=== PATIENT | female | born 1965 | race Caucasian/White ===

== ENCOUNTER 2019-05-24 08:15 | Day surgery (SDC) | payer BC ==
[2019-05-22 12:15] VITALS: BMI 39.4
[~2019-05-24 08:15] MED LIST: LACTATED RINGERS 1,000 ML IV SCH
--- NOTE | 2019-05-24 08:15 | P.GSCN ---
History of Present Illness Consult date: 05/24/19 History of present illness: CHIEF COMPLAINT: Colon screen HISTORY OF PRESENT ILLNESS: The patient is a 53-year-old female who presents for colon screen. Lower endoscopy was offered for further evaluation and management. PAST MEDICAL HISTORY: Please see list. PAST SURGICAL HISTORY: Please see list. MEDICATIONS: Please see list. ALLERGIES: Please see list. SOCIAL HISTORY: No illicit drug use FAMILY HISTORY: No reports of Crohn disease or ulcerative colitis. REVIEW OF ORGAN SYSTEMS: CONSTITUTIONAL: No reports of fevers or chills. PHYSICAL EXAM: VITAL SIGNS: Stable GENERAL: Well-developed pleasant in no acute distress. HEENT: No scleral icterus. Extraocular movements grossly intact. Moist buccal mucosa. NECK: Supple without lymphadenopathy. CHEST: Unlabored respirations. Equal bilateral excursions. CARDIOVASCULAR: Regular rate and rhythm. Distal 2+ pulses. ABDOMEN: Soft, nontender, nondistended. MUSCULOSKELETAL: No clubbing, cyanosis, or edema. ASSESSMENT: 1. Colon screen. PLAN: 1. Recommend proceeding with a lower endoscopy Past Medical History Past Medical History: Hypertension, Osteoarthritis (OA) Additional Past Medical History / Comment(s): HEART MURMUR, BACK PAIN, STATES LOW TOLERANCE TO MEDICATIONS, CURRENTLY ON WEIGHT WATCHERS., OCCASIONAL VERTIGO. History of Any Multi-Drug Resistant Organisms: None Reported Past Surgical History: Section, Cholecystectomy, Tonsillectomy Additional Past Surgical History / Comment(s): BREAST BX. Past Anesthesia/Blood Transfusion Reactions: No Reported Reaction, Motion Sickness Additional Past Anesthesia/Blood Transfusion Reaction / Comm: STATES LOW TOLERANCE TO MEDS- SENSITIVE., OCCASIONAL VERTIGO, ANXIETY DUE TO ANESTHESIA. Past Psychological History: Anxiety Smoking Status: Never smoker Past Alcohol Use History: None Reported Past Drug Use History: None Reported - Past Family History Mother Family Medical History: Cancer Additional Family Medical History / Comment(s): BREAST AND ORAL CANCER Medications and Allergies Home Medications Medication Instructions Recorded Confirmed Type Calcium Carbonate [Calcium] 500 mg PO DAILY 05/22/19 05/22/19 History Lisinopril [Zestril] 10 mg PO DAILY 05/22/19 05/22/19 History Magnesium (Unknown Dose) 1 tab PO DAILY 05/22/19 05/22/19 History Multivitamin Powder Drink 1 dose PO DAILY 05/22/19 05/22/19 History [place]-3 Fatty Acids/Fish Oil [Fish 1 each PO DAILY 05/22/19 05/22/19 History Oil 1,000 mg Softgel] Potassium (Unknown Dose) 1 tab PO DAILY 05/22/19 05/22/19 History Allergies Allergy/AdvReac Type Severity Reaction Status Date / Time codeine Allergy Unknown Unknown Verified 05/22/19 12:02 Penicillins Allergy Unknown Unknown Verified 05/22/19 12:01 tetracycline Allergy Unknown Unknown Verified 05/22/19 12:02 meperidine [From Demerol] AdvReac Severe Nausea & Verified 05/22/19 12:02 Vomiting
[2019-05-24 08:32] VITALS: RESP 17; TEMP 97.2
[2019-05-24] MEDS ORDERED: LIDOCAINE 1% 20 ML VIAL (10MG/ML) FOR IV START INTRADERMA ONE (08:40)
[2019-05-24] MEDS ORDERED: fentaNYL (PF) 50 MCG/ML 2 ML AMP ONE (09:15)
[2019-05-24] MEDS ORDERED: PROPOFOL 10 MG/ML 20 ML VIAL IV ONE (09:15)
[2019-05-24] MEDS ORDERED: LIDOCAINE 1% INJ 10MG/ML (20 ML MDV) ONE (09:15)
[2019-05-24] MEDS ORDERED: MIDAZOLAM 2 MG/2 ML VIAL ONE (09:15)
--- NOTE | 2019-05-24 09:50 | P.PCN ---
Date of Procedure: 05/24/19 Description of Procedure: PREOPERATIVE DIAGNOSIS: Colonoscopy screening, first Family history of colon cancer, father POSTOPERATIVE DIAGNOSIS: Colonoscopy screening, first Family history of colon cancer, father Multiple tubular adenomas throughout the colon. OPERATION: Colonoscopy to the ileocecal valve and appendiceal orifice. Colonoscopy with multiple hot snare polypectomies Colonoscopy with multiple cold forceps biopsies. SURGEON: Kari Alcala MD. ANESTHESIA: MAC. INDICATIONS: The patient is a 53-year-old female who presents for her first colonoscopy screening. She has family history of colon cancer in her father. Benefits and risks were described and informed consent was obtained. DESCRIPTION OF PROCEDURE: The patient had undergone Suprep. She had been brought into the operating room and laid in the left lateral decubitus position. After adequate intravenous sedation, the rectum was examined with 2% lidocaine jelly. External hemorrhoids were encountered. The rectal tone was within normal limits. No lesions were palpated in the rectal vault. An Olympus colonoscope was advanced until the ileocecal valve and appendiceal orifice were clearly viewed. The prep was good with visualization of the mucosal folds. The scope was removed with visualization of each mucosal fold. Few scattered diverticulosis was encountered. Multiple colonic polyps were found snare polypectomy. No evidence of focal colitis was found. Retroflexion of the scope demonstrated grade 1 internal hemorrhoids without active bleeding or inflammation. The colon was desufflated. The patient had tolerated the procedure well. Withdrawal time was over 6 minutes. FINDINGS: Aronchick preparation quality scale 1 (1-5) Internal hemorrhoids, grade 1 External hemorrhoids, grade 2. No arteriovenous malformations. Highly redundant sigmoid colon requiring abdominal wall pressure. Few scattered sigmoid diverticulosis Removal of 3 polyps from the proximal, mid transverse colon and descending colon: - Snare polypectomy 30 cm from the anal verge, 15 mm tubulovillous adenoma polyp. - Snare polypectomy mid transverse colon, 8 mm flat villous adenoma polyp. - Snare polypectomy of distal transverse colon, 6 mm flat villous adenoma polyp. No focal colitis. RECOMMENDATIONS: Given severity of tubular adenomas, recommend repeat colonoscopy 2 years, 2020. Plan - Discharge Summary New Discharge Prescriptions: No Action Lisinopril [Zestril] 10 mg PO DAILY [place]-3 Fatty Acids/Fish Oil [Fish Oil 1,000 mg Softgel] 1 each PO DAILY Magnesium (Unknown Dose) 1 tab PO DAILY Calcium Carbonate [Calcium] 500 mg PO DAILY Potassium (Unknown Dose) 1 tab PO DAILY Multivitamin Powder Drink 1 dose PO DAILY Discharge Medication List Calcium Carbonate [Calcium] 500 mg PO DAILY 05/22/19 [History] Lisinopril [Zestril] 10 mg PO DAILY 05/22/19 [History] Magnesium (Unknown Dose) 1 tab PO DAILY 05/22/19 [History] Multivitamin Powder Drink 1 dose PO DAILY 05/22/19 [History] [place]-3 Fatty Acids/Fish Oil [Fish Oil 1,000 mg Softgel] 1 each PO DAILY 05/22/19 [History] Potassium (Unknown Dose) 1 tab PO DAILY 05/22/19 [History] Follow up Appointment(s)/Referral(s): Kari Alcala MD [STAFF PHYSICIAN] - As Needed Patient Instructions/Handouts: Colorectal Polyps (GEN) Activity/Diet/Wound Care/Special Instructions: Repeat colonoscopy 2 years, 2020 Discharge Disposition: HOME SELF-CARE
[2019-05-24 10:06] VITALS: BP 112/79; PULSE 75
== END 2019-05-24 10:26 | disposition home or self-care (01) ==
LOC: ORWHC2ENDO 08:15
PROVIDERS: ATTEND Surgery Plastic and Reconstructive Surgery
DX: Z12.11 Encounter for screening for malignant neoplasm of colon (principal); D12.3 Benign neoplasm of transverse colon; D12.4 Benign neoplasm of descending colon; K64.0 First degree hemorrhoids; K64.4 Residual hemorrhoidal skin tags; Q43.8 Other specified congenital malformations of intestine; I10 Essential (primary) hypertension; F41.9 Anxiety disorder, unspecified; M19.90 Unspecified osteoarthritis, unspecified site; Z90.49 Acquired absence of other specified parts of digestive tract; Z90.89 Acquired absence of other organs; Z79.899 Other long term (current) drug therapy; Z88.0 Allergy status to penicillin; Z88.1 Allergy status to other antibiotic agents; Z88.5 Allergy status to narcotic agent; Z80.0 Family history of malignant neoplasm of digestive organs; Z80.8 Family history of malignant neoplasm of other organs or systems; Z80.3 Family history of malignant neoplasm of breast
CPT/HCPCS: 88305; 45385; J2250; J2001; J3010; J2704

== ENCOUNTER → 2019-06-29 | Outpatient (CLI) | payer BC ==
--- NOTE | 2019-06-30 09:53 | MM ---
Reason for exam: screening (asymptomatic). Last mammogram was performed 1 year and 10 months ago. History: Family history of breast cancer in mother. Benign right mammotome panel of the right breast, May 15, 2005. Physical Findings: A clinical breast exam by your physician is recommended on an annual basis and results should be correlated with mammographic findings. MG 3D Screening Mammo W/Cad Bilateral CC and MLO view(s) were taken. Prior study comparison: August 16, 2017, bilateral MG 3d screening mammo w/cad. January 25, 2014, bilateral MG screening mammo w CAD. The breast tissue is heterogeneously dense. This may lower the sensitivity of mammography. Stable benign calcifications. There is no discrete abnormality. No significant changes when compared with prior studies. ASSESSMENT: Benign, BI-RAD 2 RECOMMENDATION: Routine screening mammogram of both breasts in 1 year.
== END | disposition home or self-care (01) ==
LOC: RADMAMWWP 07:16
PROVIDERS: ATTEND Family Medicine
DX: Z12.31 Encounter for screening mammogram for malignant neoplasm of breast (principal)
CPT/HCPCS: 77063; 77067

== ENCOUNTER → 2020-06-11 | Outpatient (CLI) | payer BC | END | disposition home or self-care (01) | LOC: LABWHC1 14:35 | PROVIDERS: ATTEND Family Medicine | DX: R05 Cough (principal); R53.83 Other fatigue; R19.7 Diarrhea, unspecified; R52 Pain, unspecified | CPT/HCPCS: U0003; C9803 ==

== ENCOUNTER → 2020-10-11 | Outpatient (CLI) | payer BC ==
--- NOTE | 2020-10-15 10:25 | MM ---
Reason for exam: screening (asymptomatic). Last mammogram was performed 1 year and 3 months ago. History: Patient is postmenopausal. Family history of breast cancer in mother. Benign right mammotome panel of the right breast, May 15, 2005. Physical Findings: A clinical breast exam by your physician is recommended on an annual basis and results should be correlated with mammographic findings. MG 3D Screening Mammo W/Cad Bilateral CC and MLO view(s) were taken. Prior study comparison: June 29, 2019, bilateral MG 3d screening mammo w/cad. August 16, 2017, bilateral MG 3d screening mammo w/cad. There are scattered fibroglandular densities. Previous mammotome biopsy in the right breast. There is chronic nodularity in the left breast. No significant changes when compared with prior studies. ASSESSMENT: Benign, BI-RAD 2 RECOMMENDATION: Routine screening mammogram of both breasts in 1 year.
== END | disposition home or self-care (01) ==
LOC: RADMAMWWP 15:33
PROVIDERS: ATTEND Family Medicine
DX: Z12.31 Encounter for screening mammogram for malignant neoplasm of breast (principal)
CPT/HCPCS: 77063; 77067

== ENCOUNTER 2022-04-01 06:38 | Day surgery (SDC) | payer BC ==
[~2022-04-01 06:38] MED LIST changes: +LIDOCAINE 1% (10MG/ML) FOR IV START INTRADERMA PRN
[2022-04-01 07:00] VITALS: TEMP 97
[2022-04-01] MEDS ORDERED: PROPOFOL 10 MG/ML 20 ML VIAL IV ONE (07:29)
--- NOTE | 2022-04-01 07:34 | P.GSHP ---
History of Present Illness H&P Date: 04/01/22 CHIEF COMPLAINT: Colon screen HISTORY OF PRESENT ILLNESS: The patient is a 56-year-old female who presents for colon screen. Lower endoscopy was offered for further evaluation and management. PAST MEDICAL HISTORY: Please see list. PAST SURGICAL HISTORY: Please see list. MEDICATIONS: Please see list. ALLERGIES: Please see list. SOCIAL HISTORY: No illicit drug use FAMILY HISTORY: No reports of Crohn disease or ulcerative colitis. REVIEW OF ORGAN SYSTEMS: CONSTITUTIONAL: No reports of fevers or chills. PHYSICAL EXAM: VITAL SIGNS: Stable GENERAL: Well-developed pleasant in no acute distress. HEENT: No scleral icterus. Extraocular movements grossly intact. Moist buccal mucosa. NECK: Supple without lymphadenopathy. CHEST: Unlabored respirations. Equal bilateral excursions. CARDIOVASCULAR: Regular rate and rhythm. Distal 2+ pulses. ABDOMEN: Soft, nontender, nondistended. MUSCULOSKELETAL: No clubbing, cyanosis, or edema. ASSESSMENT: 1. Colon screen. PLAN: 1. Recommend proceeding with a lower endoscopy Past Medical History Past Medical History: Hypertension, Osteoarthritis (OA) Additional Past Medical History / Comment(s): HEART MURMUR ( mild ), BACK PAIN, STATES LOW TOLERANCE TO MEDICATIONS, CURRENTLY ON WEIGHT WATCHERS., OCCASIONAL VERTIGO. Covid 08/26 History of Any Multi-Drug Resistant Organisms: None Reported Past Surgical History: Section, Cholecystectomy, Tonsillectomy Additional Past Surgical History / Comment(s): BREAST BX. Past Anesthesia/Blood Transfusion Reactions: No Reported Reaction, Motion Sickness Additional Past Anesthesia/Blood Transfusion Reaction / Comment(s): STATES LOW TOLERANCE TO MEDS- SENSITIVE., OCCASIONAL VERTIGO, ANXIETY DUE TO ANESTHESIA. Smoking Status: Never smoker - Past Family History Mother Family Medical History: Cancer, COPD Additional Family Medical History / Comment(s): BREAST AND ORAL CANCER Father Additional Family Medical History / Comment(s): carinoma of colon and cirrohsis on autopsy Medications and Allergies Home Medications Medication Instructions Recorded Confirmed Type Calcium Carbonate [Calcium] 500 mg PO DAILY 05/22/19 04/01/22 History Magnesium (Unknown Dose) 1 tab PO DAILY 05/22/19 04/01/22 History Multivitamin Powder Drink 1 dose PO DAILY 05/22/19 04/01/22 History [place]-3 Fatty Acids/Fish Oil [Fish 1 each PO DAILY 05/22/19 04/01/22 History Oil 1,000 mg Softgel] Potassium (Unknown Dose) 1 tab PO DAILY 05/22/19 04/01/22 History Lisinopril-Hctz 20-25 mg 1 tab PO DAILY 03/31/22 04/01/22 History [Zestoretic 20-25] Allergies Allergy/AdvReac Type Severity Reaction Status Date / Time codeine Allergy Unknown Unknown Verified 04/01/22 06:57 Penicillins Allergy Unknown Unknown Verified 04/01/22 06:57 tetracycline Allergy Unknown Rash/Hives Verified 04/01/22 06:57 meperidine [From Demerol] AdvReac Severe Nausea & Verified 04/01/22 06:57 Vomiting Surgical - Exam Vital Signs Temp Resp BP 97 F L 18 155/92 04/01/22 06:59 04/01/22 06:59 04/01/22 06:59
--- NOTE | 2022-04-01 08:23 | P.PCN ---
Date of Procedure: 04/01/22 Description of Procedure: PREOPERATIVE DIAGNOSIS: Personal history of colon polyps Colonoscopy screening POSTOPERATIVE DIAGNOSIS: Tubular adenoma splenic flexure Tubular adenoma sigmoid colon Internal hemorrhoids, grade 2 OPERATION: Colonoscopy to the ileocecal valve Colonoscopy with hot snare polypectomy Colonoscopy with cold forceps biopsy SURGEON: Kari Alcala MD. ANESTHESIA: MAC. INDICATIONS: The patient is an 56-year-old male who presents family history of malignant colon polyps and personal history of colon polyps. Last colonoscopy less than 5 years. Benefits and risks were described and informed consent was obtained. DESCRIPTION OF PROCEDURE: The patient had undergone Miralax prep. The patient had been brought into the operating room and laid in the left lateral decubitus position. After adequate intravenous sedation, the rectum was examined with 2% lidocaine jelly. The prostate was unremarkable. External hemorrhoids were encountered. The rectal tone was within normal limits. No lesions were palpated in the rectal vault. An Olympus colonoscope was advanced to the ileocecal valve. The prep was good. No large diverticulosis was encountered. The colon was highly redundant requiring additional abdominal wall pressure. Colonic polyps were found and removed. No evidence of focal colitis was found. Retroflexion of the scope demonstrated grade 2 internal hemorrhoids without active bleeding or inflammation. The colon was desufflated. The patient had tolerated the procedure well. Withdrawal time was over 6 minutes. FINDINGS: Aronchick preparation quality scale 2 (1-5) Internal hemorrhoids, grade 3 with recent inflammation and bleeding External hemorrhoids, grade 4. No arteriovenous malformations. No large diverticulosis Highly redundant sigmoid colon requiring additional abdominal wall pressure. Removal of 2 polyps: - Snare polypectomy splenic flexure, 8 mm tubulovillous adenoma polyp. - Cold forceps biopsy at 20 cm from the anal verge, 4 mm polyp, sigmoid colon No focal colitis. RECOMMENDATIONS: Recommend repeat colonoscopy 3 years, 2024 Plan - Discharge Summary Discharge Rx Participant: No New Discharge Prescriptions: Continue [place]-3 Fatty Acids/Fish Oil [Fish Oil 1,000 mg Softgel] 1 each PO DAILY Magnesium (Unknown Dose) 1 tab PO DAILY Calcium Carbonate [Calcium] 500 mg PO DAILY Potassium (Unknown Dose) 1 tab PO DAILY Multivitamin Powder Drink 1 dose PO DAILY Lisinopril-Hctz 20-25 mg [Zestoretic 20-25] 1 tab PO DAILY Discharge Medication List Calcium Carbonate [Calcium] 500 mg PO DAILY 05/22/19 [History] Magnesium (Unknown Dose) 1 tab PO DAILY 05/22/19 [History] Multivitamin Powder Drink 1 dose PO DAILY 05/22/19 [History] [place]-3 Fatty Acids/Fish Oil [Fish Oil 1,000 mg Softgel] 1 each PO DAILY 05/22/19 [History] Potassium (Unknown Dose) 1 tab PO DAILY 05/22/19 [History] Lisinopril-Hctz 20-25 mg [Zestoretic 20-25] 1 tab PO DAILY 03/31/22 [History] Follow up Appointment(s)/Referral(s): Kari Alcala MD [STAFF PHYSICIAN] - As Needed Patient Instructions/Handouts: Colorectal Polyps (GEN) Activity/Diet/Wound Care/Special Instructions: Repeat colonoscopy in 3 years, 2024 Discharge Disposition: HOME SELF-CARE
[2022-04-01 08:35] VITALS: BP 137/94; PULSE 91; RESP 16
== END 2022-04-01 08:43 | disposition home or self-care (01) ==
LOC: ORWHC2ENDO 06:38
PROVIDERS: ATTEND Surgery Plastic and Reconstructive Surgery
DX: Z12.11 Encounter for screening for malignant neoplasm of colon (principal); D12.3 Benign neoplasm of transverse colon; D12.5 Benign neoplasm of sigmoid colon; K64.3 Fourth degree hemorrhoids; Z86.010 Personal history of colon polyps; Z83.71 Family history of colonic polyps; I10 Essential (primary) hypertension; R01.1 Cardiac murmur, unspecified; Z88.1 Allergy status to other antibiotic agents; Z88.0 Allergy status to penicillin; Z88.5 Allergy status to narcotic agent; Z79.899 Other long term (current) drug therapy; M19.90 Unspecified osteoarthritis, unspecified site; Z90.49 Acquired absence of other specified parts of digestive tract; Z80.3 Family history of malignant neoplasm of breast; Z80.8 Family history of malignant neoplasm of other organs or systems; Z80.0 Family history of malignant neoplasm of digestive organs; Z83.79 Family history of other diseases of the digestive system; Z82.5 Family history of asthma and other chronic lower respiratory diseases
CPT/HCPCS: 88305; 45380; 45385; J2704

== ENCOUNTER → 2023-04-06 | Outpatient (CLI) | payer BC ==
--- NOTE | 2023-04-07 18:54 | MM ---
Reason for Exam: Screening (asymptomatic). Last mammogram was performed 2 year(s) and 6 month(s) ago. Patient History: Menarche at age 10. First Full-Term at age 24. Postmenopausal. 05/15/2005, Benign Core Biopsy on the right side. Mother had breast cancer. Risk Values: [place] 5 year model risk: 3.4%. NCI Lifetime model risk: 18.5%. Prior Study Comparison: 08/16/2017 Bilateral Screening Mammogram, [facility]. 06/29/2019 Bilateral Screening Mammogram, [facility]. 10/11/2020 Bilateral Screening Mammogram, [facility]. Tissue Density: There are scattered fibroglandular densities. Findings: Analyzed By CAD. Pattern appears symmetrical and stable. Benign spherical calcifications within the left breast. A core marker is within the right breast. A few scattered benign punctate calcifications are within the bilateral breasts. No suspicious groups of microcalcifications, spiculated or lobular masses, architectural distortion or other secondary signs of malignancy are mammographically apparent. Overall Assessment: Benign, BI-RAD 2 Management: Screening Mammogram of both breasts in 1 year. A negative mammogram report should not preclude additional follow up of suspicious palpable abnormalities. Patient should continue monthly self breast exam. A clinical breast exam by your physician is recommended on an annual basis and results should be correlated with mammographic findings. Electronically signed and approved by: Robert Rivero D.O. Radiologis
== END | disposition home or self-care (01) ==
LOC: RADMAMWWP 06:58
PROVIDERS: ATTEND Family Medicine
DX: Z12.31 Encounter for screening mammogram for malignant neoplasm of breast (principal); Z78.0 Asymptomatic menopausal state; Z80.3 Family history of malignant neoplasm of breast
CPT/HCPCS: 77063; 77067